=== PATIENT | male | born 1970 | race Two or more races ===

== ENCOUNTER 2024-08-02 10:00 | Outpatient (RCR) | payer MEDICAID, SELFPAY ==
--- NOTE | 2024-07-19 10:10 | PT.ODAYNRPT ---
PT Outpatient Daily Note OP Daily Note Outpatient Physical Therapy Treatment Date: 07/19/24 Visit Reasons: Left arm pain Subjective: Pt reports he can close the L hand more since sx but can't touch thumb to all fingers Objective: See F/S for therex MHP x7' L elbow Assessment: Difficulty with clothes pins due to decreased pinch industrial machinery mechanic strength. Limited flexion of first and second digits. Good improvement with elbow extension to almost full today with low load prolonged stretching. Plan: Continue per POC Length of Time (minutes) of Treatment: 30 Minutes Procedure Charges OP PT Eval Mod Complex 30 minutes: Yes
--- NOTE | 2024-07-21 12:29 | PTNOTE_ITS ---
PT Outpatient Daily Note OP Daily Note Outpatient Physical Therapy Treatment Date: 07/21/24 Visit Reasons: Left arm pain Subjective: Pt reports he can close the L hand more since sx but can't touch thumb to all fingers Objective: See F/S for therex MHP x7' L elbow Assessment: Difficulty with clothes pins due to decreased pinch fitness and wellness coordinator strength. Limited flexion of first and second digits. Good improvement with elbow extension to almost full today with low load prolonged stretching. Plan: Continue per POC Length of Time (minutes) of Treatment: 30 Minutes Procedure Charges Therapeutic Exercise 30 minutes: Yes
--- NOTE | 2024-07-26 12:29 | PTNOTE_ITS ---
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 Limited flexion of first and second digits. Plan: Continue per POC Length of Time (minutes) of Treatment: 30 Minutes Procedure Charges Therapeutic Exercise 30 minutes: Yes
--- NOTE | 2024-07-28 11:07 | PTNOTE_ITS ---
PT Outpatient Daily Note OP Daily Note Outpatient Physical Therapy Treatment Date: 07/28/24 Visit Reasons: Left arm pain Subjective: Pt reports he can close the L hand more since sx but can't touch thumb to all fingers. He wears digit hogshead liner at night but can't fully extend them on his own. Objective: See F/S for therex Assessment: Slow progress with goals due to difficulty with clothes pins due to decreased pinch superintendent police strength. Limited flexion of first and second digits. Plan: Continue per POC Length of Time (minutes) of Treatment: 30 Minutes Procedure Charges Therapeutic Exercise 30 minutes: Yes
--- NOTE | 2024-08-02 10:46 | PT.ODAYNRPT ---
PT Outpatient Daily Note OP Daily Note Outpatient Physical Therapy Treatment Date: 08/02/24 Visit Reasons: Left arm pain Subjective: Pt reports he can close the L hand more since sx but can't touch thumb to all fingers. He wears digit vending machine coin collector at night but can't fully extend them on his own. Objective: See F/S for therex Assessment: Slow progress with goals due to difficulty with clothes pins due to decreased pinch applications engineering manager strength. Limited flexion of first and second digits. Plan: Continue per POC Length of Time (minutes) of Treatment: 30 Minutes Procedure Charges Therapeutic Exercise 30 minutes: Yes
== END 2024-08-13 23:59 | disposition home or self-care (01) ==
LOC: CPTX 10:00
PROVIDERS: PCP Physician Assistant; Referring Provider Physician Assistant; Visit Provider Physician Assistant
DX: M25.522 Pain in left elbow (principal); M25.512 Pain in left shoulder; R20.0 Anesthesia of skin; M19.022 Primary osteoarthritis, left elbow; G56.22 Lesion of ulnar nerve, left upper limb; I10 Essential (primary) hypertension
CPT/HCPCS: 97110; 97162

== ENCOUNTER 2024-08-10 06:25 | Day surgery (SDC) | payer MEDICAID, SELFPAY ==
[2024-08-09 08:34] VITALS: BMI 28.4
--- NOTE | 2024-08-09 08:55 | EKG_ITS ---
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
[2024-08-09 10:24] LABS: Basophils % (Auto) 0 % (0-2.5); Eosinophils # (Auto) 0.1 Thou/mm3 (0.0-0.5); Eosinophils % (Auto) 1 % (0-10); Hematocrit 48.8 % (41.0-53.0); Hemoglobin 16.8 g/dL (13.5-16.0); Immature Granulocytes % (Auto) 0 % (0-0); Immature Granulocytes Auto 0.03 Thou/mm3 (0.00-0.00); Lymphocytes # (Auto) 3.5 Thou/mm3 (1.0-4.8); Lymphocytes % (Auto) 45 % (10-50); Mean Corpuscular HGB Conc 34.4 g/dl (31.0-37.0); Mean Corpuscular Hemoglobin 30.5 pg (25.0-35.0); Mean Corpuscular Volume 89 fL (80-100); Monocytes # (Auto) 0.4 Thou/mm3 (0.0-0.8); Monocytes % (Auto) 6 % (0-12); Neutrophils # (Auto) 3.7 Thou/mm3 (1.8-7.7); Neutrophils % (Auto) 48 % (37-80); Nucleated Red Blood Cell % 0 /100 WBC (0); Platelet Count 303 Thou/mm3 (140-440); RDW Standard Deviation 41.9 fL (35.1-43.9); Red Blood Count 5.51 Miln/mm3 (4.50-5.90); White Blood Count 7.7 Thou/mm3 (3.8-10.6)
[2024-08-09 10:33] LABS: Alanine Aminotransferase 48 U/L (10-49); Albumin, Serum 4.9 gm/dL (3.5-5.0); Albumin/Globulin Ratio 1.7 (1.2-2.2); Alkaline Phosphatase 118 U/L (46-116); Anion Gap 7 (7-16); Aspartate Amino Transferase 24 U/L (0-34); BUN/Creatinine Ratio 11 Ratio (12-20); Bilirubin,Total 0.7 mg/dL (0.3-1.2); Blood Urea Nitrogen 10 mg/dL (9-23); Calcium 9.7 mg/dL (8.3-10.6); Calcium (Corrected) 9.7 mg/dL (8.5-10.1); Carbon Dioxide 28.3 mMol/L (20.0-31.0); Chloride 102 mMol/L (98-107); Creatinine (Component) 0.9 mg/dL (0.6-1.3); Estimated Creatinine Clearance 94.3 mL/min (>60); Globulin 2.9 gm/dL (2.3-3.5); Glucose 105 mg/dL (74-106); Osmolality,Calculated 272 (275-295); Potassium 4.1 mMol/L (3.4-5.1); Sodium 137 mMol/L (136-145); Total Protein 7.8 gm/dL (5.7-8.2); eGFR > 60 See Note
[2024-08-09 10:34] LABS: Partial Thromboplastin Time 26.1 Seconds (22.0-36.0); Prothrombin Time 10.8 Seconds (9.0-12.2)
[2024-08-10] VITALS (7 sets, daily range): BP systolic 130–152; BP diastolic 77–99; PULSE 75–92; RESP 12–20; TEMP 36.6–36.8; O2SAT 96–99; BMI 28.3
--- NOTE | 2024-08-10 07:23 | CHAP ---
Prayed with patient before procedure.
--- NOTE | 2024-08-10 11:18 | SUR.PHASEI ---
1118: Pt. AAOx4, vitals stable, breathing unlabored, no complaint of pain or nausea, x4 dressing to ABD CDI, no active bleed noted, report received from Scott WEAVER and Jenifer BRISENO.
--- NOTE | 2024-08-10 11:27 | ESOP_ITS ---
Date of Procedure 08/10/24 Pre Op Diagnosis Symptomatic cholelithiasis Post Op Diagnosis Same Procedure Laparoscopic cholecystectomy Findings Patient was found to have single stone within noninflamed gallbladder but there was considerable amount of bleeding due to the gallbladder wedged into the liver Procedure Description After endotracheal anesthesia was given the patient was placed in supine position and the abdomen was prepped with chloroprep solution and draped in a sterile manner. After time out was performed I injected a few cc of of half percent Marcaine with epinephrine below the umbilicus and I made an incision for about 3 cm in length. The fascia was cleaned and Veress needle was inserted to create a pneumoperitoneum up to 15 mmHg. Then introduced a 12 mm trocar and a 10 mm camera through the fascia and I inspected the intra-abdominal organs as well as the gallbladder and the liver. Another 5 mm trocar was inserted in the epigastric region under direct vision after injecting some local anesthesia. At this time the patient was kept in reverse Trendelenburg position with the left lateral tilt. The third 5 mm trocar was inserted over the mid axillary line under direct vision and a Saurabh and Svetlana grasper was used to hold the fundus of the gallbladder. The retraction was carried out by the assistant sales director moving the fundus of the gallbladder towards the right shoulder of the patient to create enough traction. I placed a another 5 mm trocar in the midaxillary line just lateral to the rectus muscle under direct vision. I used a fenestrated grasper to retract the neck of the gallbladder laterally towards the patient's right hip. The Calot's triangle was exposed and I achieved the critical view of safety as follows: I dissected out the fatty tissue from the hepatocystic triangle and cleared this area. I also dissected inferior and posterior to the gallbladder to identify the cystic duct and the gallbladder wall. Then superiorly I dissected along the cystic plate up to lower one third third of the gallbladder to lift the gallbladder from the liver. At this time I confirmed that only 2 structures entering the gallbladder were cystic artery and the cystic duct. The common duct was not seen distally but no dissection was carried out around the duct. I did not see any need for operative cholangiogram in this patient. The cystic duct was clipped doubly and then divided and cystic artery was similarly dealt with. Then the gallbladder was removed from the liver bed using Harmonic aaron to control the small blood vessels as the dissection proceeded. Because of the location of the gallbladder deep into the liver there was a fair amount of bleeding at the liver bed which was controlled with cautery and Surgicel x 2. Then the gallbladder was from the liver bed completely and delivered through the umbilical port using an Endopouch. The liver bed was coagulated with cautery to obtain satisfactory hemostasis. The trocars were pulled out from the abdominal cavity and the fascia at the umbilical incision was closed with interrupted 0 Ethibond. Subcutaneous tissues was closed with 3-0 chromic and injected a few cc of half percent Marcaine with epinephrine and the skin was closed with interrupted 4-0 nylon stitches at all the trocar sites. Dressing was applied with 2 x 2 and Tegaderm. Patient tolerated the procedure well and returned to recovery room in stable condition. Anesthesia GETA Pathology / specimen Other (Gallbladder and the stones) IVF Infused 500 Estimated Blood Loss 100 Condition Stable Disposition PACU Surgeon Brionna Subramanian MD Surgical Staff Operation Date: 08/10/24 08:45 Case Staff CONDITIONING YARD SUPERVISOR: Scott Farah Jr, RN First Assistant: Gisel Castillo
--- NOTE | 2024-08-10 12:15 | SUR.PHASEII ---
1215: Pt. AAOx4, vitals stable, breathing unlabored, no complaint of pain or nausea, X4 dressing to ABD CDI, no active bleed noted, pt. tolerated sips of water well, pt. ambulated to wheelchair with steady gait and no assist, no complications. Gave discharge instructions to the pt. and his ride using tea bag machine tender Dominick [id number], Both verbalized understanding and had no further questions. Pt. left with all personal belongings.
== END 2024-08-10 12:15 | disposition home or self-care (01) ==
PROVIDERS: PCP Physician Assistant; Referring Provider Surgery; Visit Provider Surgery
PROC: 0FT44ZZ Resection of Gallbladder, Percutaneous Endoscopic Approach (ICD-10-PCS; CPT 47562; principal; 2024-08-10 08:45)
DX: K80.20 Calculus of gallbladder without cholecystitis without obstruction (principal); Z01.810 Encounter for preprocedural cardiovascular examination
CPT/HCPCS: 47562; 36415; 80053; 85025; 85610; 85730; 93005; A4217; A4649; J1100; J1885; J2250; J2405; J2704; J3010; J3490

== ENCOUNTER 2024-09-01 11:00 | Outpatient (RCR) | payer MEDICAID, SELFPAY ==
--- NOTE | 2024-08-23 13:10 | PT.ODAYNRPT ---
PT Outpatient Daily Note OP Daily Note Outpatient Physical Therapy Treatment Date: 08/23/24 Visit Reasons: LEFT ARM PAIN Subjective: Pt reports he can close the L hand more since sx but can't touch thumb to all fingers. He wears digit auto bumper straightener at night but can't fully extend them on his own. He is wondering how much the L hand will improve. Objective: See F/S for therex Upper limb tension test: Ulnar nerve: negative Median nerve: mild pulling of L forearm Assessment: Slow progress with goals due to difficulty with clothes pins due to decreased pinch hybrid corn breeder strength. Limited flexion of first and second digits. Plan: Continue per POC Length of Time (minutes) of Treatment: 30 Minutes Procedure Charges Therapeutic Exercise 30 minutes: Yes
--- NOTE | 2024-08-26 14:49 | PTNOTE_ITS ---
PT Outpatient Daily Note OP Daily Note Outpatient Physical Therapy Treatment Date: 08/26/24 Visit Reasons: LEFT ARM PAIN Subjective: Pt reports elbow is progressing but feels progress with spindle sander strength and function of digits is still limited. Objective: Please see flow sheet for ther ex list. Assessment: Focus on improving functional strength added pinching with putty exercise. Plan: Continue with POC. Length of Time (minutes) of Treatment: 30 Minutes Procedure Charges Therapeutic Exercise 30 minutes: Yes
--- NOTE | 2024-08-30 11:35 | PT.ODAYNRPT ---
PT Outpatient Daily Note OP Daily Note Outpatient Physical Therapy Treatment Date: 08/30/24 Visit Reasons: LEFT ARM PAIN Subjective: Pt reports poor hand control. Objective: Please see flow sheet for ther ex list. Assessment: Pt presents in clinic with poor motor control of L hand and digits. Focus on restoring hand function. Plan: Continue with POC. Length of Time (minutes) of Treatment: 30 Minutes Procedure Charges Therapeutic Exercise 30 minutes: Yes
--- NOTE | 2024-09-01 14:17 | PT.ODS1RPT ---
PT OP Progress/Discharge Note Date of Service: 09/01/24 Progress Note/DC Note Progress Note/Discharge Note: DC Note Patient Information Visit Reasons: LEFT ARM PAIN Service Continue Service or Discharge: Discharge Discharge Date: 09/01/24 Status Subjective: Pt reports he can close the L hand more since sx but can't touch thumb to all fingers. 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 He is wondering how much the L hand will improve. Objective: See F/S for therex Upper limb tension test: Ulnar nerve: negative Median nerve: mild pulling of L forearm Cristian yard switch operator strength: L: 12 lbs, R: 95 lbs L elbow AROM: Flexion: 135 deg Extension: -5 deg Assessment: Pt has attended 08/25 visits with good progress with elbow extension to -5. Pt has continued L hand yard switch operator weakness unchanged from evaluation and decreased fine motor control and digit manipulation. Pt has decreased TTP of posterior elbow from mod to min. Pt has difficulty with clothes pins due to decreased pinch yard switch operator strength. Limited flexion of first and second digits. Pt would like to seek Rx for the L shoulder. Plan: D/C with HEP Procedure Charges Therapeutic Exercise 30 minutes: Yes
== END 2024-09-13 23:59 | disposition home or self-care (01) ==
LOC: CPTX 11:00
PROVIDERS: PCP Physician Assistant; Referring Provider Physician Assistant; Visit Provider Physician Assistant
DX: M25.522 Pain in left elbow (principal); M25.512 Pain in left shoulder; R20.0 Anesthesia of skin; G56.22 Lesion of ulnar nerve, left upper limb; M19.022 Primary osteoarthritis, left elbow
CPT/HCPCS: 97110

== ENCOUNTER 2024-10-13 09:30 | Outpatient (RCR) | payer MEDICAID, SELFPAY ==
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
--- NOTE | 2024-10-13 10:06 | PT.ODAYNRPT ---
PT Outpatient Daily Note OP Daily Note Outpatient Physical Therapy Treatment Date: 10/13/24 Visit Reasons: Cervical Radicular Pain/left shoulder pain Subjective: No pain in L shoulder or neck today upon arrival Objective: See F/S for therex Assessment: Pt has moderate tissue irritability of L shoulder with therex Plan: Continue per POC Length of Time (minutes) of Treatment: 30 Minutes Procedure Charges Therapeutic Exercise 30 minutes: Yes
== END 2024-10-14 23:59 | disposition home or self-care (01) ==
LOC: CPTX 09:30
PROVIDERS: PCP Physician Assistant; Referring Provider Family Medicine Sports Medicine; Visit Provider Family Medicine Sports Medicine
DX: M54.12 Radiculopathy, cervical region (principal); M75.02 Adhesive capsulitis of left shoulder
CPT/HCPCS: 97110; 97162

== ENCOUNTER 2024-11-09 09:00 | Outpatient (RCR) | payer MEDICAID, SELFPAY ==
--- NOTE | 2024-10-18 11:11 | PT.ODAYNRPT ---
PT Outpatient Daily Note OP Daily Note Outpatient Physical Therapy Treatment Date: 10/18/24 Visit Reasons: NECK AND SHOULDER PAIN Subjective: No pain in L shoulder or neck today upon arrival Objective: See F/S for therex Assessment: Pt has moderate tissue irritability of L shoulder with therex Plan: Continue per POC Length of Time (minutes) of Treatment: 30 Minutes Procedure Charges Therapeutic Exercise 30 minutes: Yes
--- NOTE | 2024-10-25 11:18 | PT.ODAYNRPT ---
PT Outpatient Daily Note OP Daily Note Outpatient Physical Therapy Treatment Date: 10/25/24 Visit Reasons: NECK AND SHOULDER PAIN Subjective: No pain in L shoulder or neck today upon arrival Objective: See F/S for therex Assessment: Pt has moderate tissue irritability of L shoulder with therex Plan: Continue per POC Length of Time (minutes) of Treatment: 30 Minutes Procedure Charges Therapeutic Exercise 30 minutes: Yes
--- NOTE | 2024-11-02 10:31 | PT.ODAYNRPT ---
PT Outpatient Daily Note OP Daily Note Outpatient Physical Therapy Treatment Date: 11/02/24 Visit Reasons: NECK AND SHOULDER PAIN Subjective: No pain in L shoulder or neck today upon arrival Objective: See F/S for therex Assessment: Pt has moderate tissue irritability of L shoulder with reaching OH Plan: Continue per POC Length of Time (minutes) of Treatment: 30 Minutes Procedure Charges Therapeutic Exercise 30 minutes: Yes
--- NOTE | 2024-11-09 11:20 | PT.ODAYNRPT ---
PT Outpatient Daily Note OP Daily Note Outpatient Physical Therapy Treatment Date: 11/09/24 Visit Reasons: NECK AND SHOULDER PAIN Subjective: No pain in L shoulder or neck today upon arrival but the shoulder gets stiff with reaching OH Objective: See F/S for therex Assessment: Pt has min/moderate tissue irritability of L shoulder with reaching OH Plan: Continue per POC Length of Time (minutes) of Treatment: 30 Minutes Procedure Charges Therapeutic Exercise 30 minutes: Yes
== END 2024-11-11 23:59 | disposition home or self-care (01) ==
LOC: CPTX 09:00
PROVIDERS: PCP Family Medicine Sports Medicine; Referring Provider Family Medicine Sports Medicine; Visit Provider Family Medicine Sports Medicine
DX: M54.12 Radiculopathy, cervical region (principal); M75.02 Adhesive capsulitis of left shoulder
CPT/HCPCS: 97110

== ENCOUNTER 2024-11-16 12:10 | Day surgery (SDC) | payer MEDICAID, SELFPAY ==
[2024-11-15 10:36] VITALS: BMI 29.0
[2024-11-16] VITALS (9 sets, daily range): BP systolic 113–149; BP diastolic 78–100; PULSE 58–86; RESP 11–21; TEMP 36.2–36.7; O2SAT 94–97; BMI 28.0
[2024-11-16] MEDS: RINGERS LACTATED 1000 ML 1,000 ML 999 ML IV (13:50)
[2024-11-16] MEDS: MIDAZOLAM INJ 1 MG/ML VIAL 2 ML (ASD USE ONLY) 2 MG IV (13:58)
[2024-11-16] MEDS: fentaNYL CIT INJ 50 mCg/ML AMP 2ML (ASD USE ONLY) IV (14:00)
--- NOTE | 2024-11-16 14:57 | SUR.PHASEII ---
1413: Pt received for recovery. Report from Pratibha BRISENO. Pt groggy. Easily aroused with eye opening then drifts to sleep. Resp even, unlabored. VS stable. No c/o pain, discomfort. 1445: Pt more awake, alert. VS stable. Denies pain. Sitting up tolerating po fluids with no difficulty swallowing and no n/v. 1452: Pt was assisted to restroom. Ambulation steady.
--- NOTE | 2024-11-16 15:36 | SUR.PHASEII ---
1508: Pt dressed and in transport chair. Pt and stated understanding of discharge instructions via professor of art history. Pt discharged from [facility] in stable condition.
== END 2024-11-16 15:08 | disposition home or self-care (01) ==
PROVIDERS: PCP Physician Assistant; Referring Provider Surgery; Visit Provider Surgery
PROC: 0DBE8ZX Excision of Large Intestine, Via Natural or Artificial Opening Endoscopic, Diagnostic (ICD-10-PCS; CPT 45380; principal; 2024-11-16 13:45)
DX: Z12.11 Encounter for screening for malignant neoplasm of colon (principal); E78.5 Hyperlipidemia, unspecified; I10 Essential (primary) hypertension
CPT/HCPCS: 45378; A4217; J2250; J3010; J7120

== ENCOUNTER 2024-12-12 08:30 | Outpatient (RCR) | payer MEDICAID, SELFPAY ==
--- NOTE | 2024-11-15 10:37 | PT.ODAYNRPT ---
PT Outpatient Daily Note OP Daily Note Outpatient Physical Therapy Treatment Date: 11/15/24 Visit Reasons: NECK AND SHOULDER PAIN Subjective: No pain in L shoulder or neck today upon arrival but the shoulder gets stiff sometimes which limits reaching OH Objective: See F/S for therex Assessment: Pt has min tissue irritability of L shoulder with reaching OH Plan: Continue per POC Length of Time (minutes) of Treatment: 30 Minutes Procedure Charges Therapeutic Exercise 30 minutes: Yes
--- NOTE | 2024-11-22 09:24 | PT.ODAYNRPT ---
PT Outpatient Daily Note OP Daily Note Outpatient Physical Therapy Treatment Date: 11/22/24 Visit Reasons: NECK AND SHOULDER PAIN Subjective: L shoulder feels stronger since starting therapy but the shoulder gets stiff sometimes which limits reaching OH Objective: See F/S for therex Assessment: Pt has min tissue irritability of L shoulder with reaching OH with improved ROM Plan: Continue per POC Length of Time (minutes) of Treatment: 30 Minutes Procedure Charges Therapeutic Exercise 30 minutes: Yes
--- NOTE | 2024-11-30 09:51 | PT.ODAYNRPT ---
PT Outpatient Daily Note OP Daily Note Outpatient Physical Therapy Treatment Date: 11/30/24 Visit Reasons: NECK AND SHOULDER PAIN Subjective: L shoulder feels stronger since starting therapy with less pain. He has surgery scheduled for L hand on 12/22/24. Objective: See F/S for therex Assessment: Pt has min tissue irritability of L shoulder with reaching OH with improved ROM Plan: Continue per POC Length of Time (minutes) of Treatment: 30 Minutes Procedure Charges Therapeutic Exercise 30 minutes: Yes
--- NOTE | 2024-12-05 09:06 | PT.ODAYNRPT ---
PT Outpatient Daily Note OP Daily Note Outpatient Physical Therapy Treatment Date: 12/05/24 Visit Reasons: NECK AND SHOULDER PAIN Subjective: No new complaints. Objective: Please see flow sheet for ther ex list. Assessment: Pt familiar with interventions able to replicate with good technique. Plan: Continue with POc. Length of Time (minutes) of Treatment: 30 Minutes Procedure Charges Therapeutic Exercise 30 minutes: Yes
--- NOTE | 2024-12-08 10:02 | PT.ODAYNRPT ---
PT Outpatient Daily Note OP Daily Note Outpatient Physical Therapy Treatment Date: 12/08/24 Visit Reasons: NECK AND SHOULDER PAIN Subjective: L shoulder feels stronger since starting therapy with less pain. He has surgery scheduled for L hand on 12/22/24. Objective: See F/S for therex Assessment: Pt has min tissue irritability of L shoulder with reaching OH with much improved ROM to about 145 FF and abduction. Plan: Continue per POC Length of Time (minutes) of Treatment: 30 Minutes Procedure Charges Therapeutic Exercise 30 minutes: Yes
--- NOTE | 2024-12-12 09:09 | PTNOTE_ITS ---
PT OP Progress/Discharge Note Date of Service: 12/12/24 Progress Note/DC Note Progress Note/Discharge Note: DC Note Patient Information Visit Reasons: NECK AND SHOULDER PAIN Service Continue Service or Discharge: Discharge Discharge Date: 12/12/24 Status Subjective: Pt reports improved ROM with reaching and strength of L shoulder since starting therapy. Objective: L shoulder AROM: Strength: FF: 151 deg 4/5 Abd: 137 deg 4-/5 ER: 90 deg Elbow strength: flexion x5 reps with 8 lbs Assessment: Pt has attended 12/12 visits with good progress with therapy goals. He has less pain with reaching OH. Strength is about the same into abduction and ER but FF is a little better. Pt can tolerate chores x30 mins with low L shoulder pain and is independent with HEP to meet those goals. He was able to lift 8 lb dumbbell and curl with elbow x5 with hand chemical processing equipment repairer strength being limiting factor on the weight. And he lifted a box with both hands with 41 lbs in it. He can reach OH with a 2 lb DB in supine x10 without L shoulder pain Plan: D/C with HEP Procedure Charges Therapeutic Exercise 30 minutes: Yes
== END 2024-12-12 23:59 | disposition home or self-care (01) ==
LOC: CPTX 08:30
PROVIDERS: PCP Family Medicine Sports Medicine; Referring Provider Family Medicine Sports Medicine; Visit Provider Family Medicine Sports Medicine
DX: M54.12 Radiculopathy, cervical region (principal); M75.02 Adhesive capsulitis of left shoulder
CPT/HCPCS: 97110

== ENCOUNTER 2025-01-10 14:52 | Outpatient (RCR) | payer MEDICAID, SELFPAY ==
--- NOTE | 2025-01-10 15:11 | PT.OIERPT ---
PT OP Initial Eval Patient Information Outpatient Physical Therapy Treatment Date: 01/10/25 Visit Reasons: LEFT HAND SURGERY Medical Diagnosis: G54.0 R29.898 Z98.890 Treatment Dx #1: Decreased ROM L hand Treatment Dx #2: Decreased strength L hand Start of Care: 01/10/25 Date of Onset: 12/22/24 DOS Smoking Status Smoking Status: Never smoker Initial Assessment Subjective: Pt is 54 yr old syriac speaking male s/p L brachioradialis to FPL transfer, EIP oppensplasty, left index and middle finger FDP tenodesis. Pt is wearing sleeve support and is moving the digits actively and not lifting anything heavy with that hand. He will bring the splint next visit. Pt goal: to make a full fist and use the hand for work duties Objective: L wrist AROM: Flexion: 50 deg Extension: 37 deg Digit extension: PIP and DIP have flexion contractures from 30-45 deg Thumb ROM: Flexion: oppose with all digits Extension: to neutral Vocational Nursing Instructor strength: NT Fist ROM: 70% of full fist Assessment: Pt presents with decreased digit ROM and strength of L hand consistent with referring Dx. Pt requires skilled therapy and has good rehab potential to meet goals. Short Term and Usp Goals 1. Ind with HEP 2. Improved digit extension to full 3. Improved fist ROM to at least 80% 4. Pt will be able to dress, feed himself and drive using L hand Treatment Plan ? 1. Manual therapy ? 2. Therex ? 3. Modalities as indicated, moist heat, ice, estim Frequency and Duration: 2x a week for 12 weeks Certification Dates: 01/10/25 to 04/09/25 Procedure Charges OP PT Eval Mod Complex 30 minutes: Yes
== END 2025-01-11 23:59 | disposition home or self-care (01) ==
LOC: CPTX 14:52
PROVIDERS: PCP Orthopaedic Surgery Hand Surgery; Referring Provider Orthopaedic Surgery Hand Surgery; Visit Provider Orthopaedic Surgery Hand Surgery
DX: R29.898 Other symptoms and signs involving the musculoskeletal system (principal); G54.0 Brachial plexus disorders; Z98.890 Other specified postprocedural states
CPT/HCPCS: 97162

== ENCOUNTER 2025-02-08 08:30 | Outpatient (RCR) | payer MEDICAID, SELFPAY ==
--- NOTE | 2025-01-16 13:29 | PT.ODAYNRPT ---
PT Outpatient Daily Note OP Daily Note Outpatient Physical Therapy Treatment Date: 01/16/25 Visit Reasons: Left Hand surgery Subjective: Pt is using the splint at night with low pain in L hand. Objective: See F/S for therex Assessment: Pt can oppose thumb to fingers 2,3 and 4 but not the pinky. Plan: Continue per POC Length of Time (minutes) of Treatment: 30 Minutes Procedure Charges Therapeutic Exercise 30 minutes: Yes
--- NOTE | 2025-01-18 12:40 | PT.ODAYNRPT ---
PT Outpatient Daily Note OP Daily Note Outpatient Physical Therapy Treatment Date: 01/18/25 Visit Reasons: Left Hand surgery Subjective: Pt is using the splint at night with low pain in L hand. Objective: See F/S for therex Assessment: Pt can oppose thumb to fingers 2,3 and 4 but not the pinky. Plan: Continue per POC Length of Time (minutes) of Treatment: 30 Minutes Procedure Charges Therapeutic Exercise 30 minutes: Yes
--- NOTE | 2025-01-26 18:17 | PT.ODAYNRPT ---
PT Outpatient Daily Note OP Daily Note Outpatient Physical Therapy Treatment Date: 01/26/25 Visit Reasons: Left Hand surgery Subjective: Pt is using the splint at night with low pain in L hand. Objective: See F/S for therex Assessment: Pt can oppose thumb to fingers 2,3 and 4 but not the pinky. 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 Plan: Continue per POC Length of Time (minutes) of Treatment: 30 Minutes Procedure Charges Therapeutic Exercise 30 minutes: Yes
--- NOTE | 2025-01-31 09:13 | PT.ODAYNRPT ---
PT Outpatient Daily Note OP Daily Note Outpatient Physical Therapy Treatment Date: 01/31/25 Visit Reasons: Left Hand surgery Subjective: Pt reports slow progress with hand. Objective: Please see flow sheet for ther ex list. Assessment: Pt tolerated interventions well. Plan: Continue with POC. Length of Time (minutes) of Treatment: 30 Minutes Procedure Charges Therapeutic Exercise 30 minutes: Yes
--- NOTE | 2025-02-02 15:05 | PTNOTE_ITS ---
PT Outpatient Daily Note OP Daily Note Outpatient Physical Therapy Treatment Date: 02/02/25 Visit Reasons: Left Hand surgery Subjective: Pt reports hand is doing better since starting PT. Objective: Please see flow sheet for ther ex list. 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 Plan: Continue with POC. Length of Time (minutes) of Treatment: 30 Minutes Procedure Charges Therapeutic Exercise 30 minutes: Yes
--- NOTE | 2025-02-07 14:52 | PT.ODAYNRPT ---
PT Outpatient Daily Note OP Daily Note Outpatient Physical Therapy Treatment Date: 02/07/25 Visit Reasons: Left Hand surgery Subjective: Pt reports L hand is doing better, notices his gripping has improved some. Objective: Please see flow sheet for ther ex list. 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 Plan: Continue with POC. Length of Time (minutes) of Treatment: 30 Minutes Procedure Charges Therapeutic Exercise 30 minutes: Yes
--- NOTE | 2025-02-08 09:48 | PTNOTE_ITS ---
PT Outpatient Daily Note OP Daily Note Outpatient Physical Therapy Treatment Date: 02/08/25 Visit Reasons: Left Hand surgery Subjective: Pt can use the hand more since starting therapy but the digits are weak. He can touch the fingers with the thumb better since surgery. Objective: See F/S for therex Assessment: Pt can oppose thumb to fingers 2,3 and 4 but not the pinky. 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 Plan: Continue per POC Length of Time (minutes) of Treatment: 30 Minutes Procedure Charges Therapeutic Exercise 30 minutes: Yes
== END 2025-02-11 23:59 | disposition home or self-care (01) ==
LOC: CPTX 08:30
PROVIDERS: PCP Orthopaedic Surgery Hand Surgery; Referring Provider Orthopaedic Surgery Hand Surgery; Visit Provider Orthopaedic Surgery Hand Surgery
DX: R29.898 Other symptoms and signs involving the musculoskeletal system (principal); G54.0 Brachial plexus disorders; Z98.890 Other specified postprocedural states
CPT/HCPCS: 97110

== ENCOUNTER 2025-03-08 10:00 | Outpatient (RCR) | payer MEDICAID, SELFPAY ==
--- NOTE | 2025-02-14 15:37 | PT.ODAYNRPT ---
PT Outpatient Daily Note OP Daily Note Outpatient Physical Therapy Treatment Date: 02/14/25 Visit Reasons: left hand surgery Subjective: Pt mentioned he had a follow up with doctor, doctor would like for pt to work on thumb opposition and thumb flexion. Objective: Please see flow sheet for ther ex list. Assessment: Added NMES today with gripping and thumb opposition exercises. Plan: Continue with pOC. Length of Time (minutes) of Treatment: 30 Minutes Procedure Charges Therapeutic Exercise 30 minutes: Yes
--- NOTE | 2025-02-21 09:04 | PT.ODAYNRPT ---
PT Outpatient Daily Note OP Daily Note Outpatient Physical Therapy Treatment Date: 02/21/25 Visit Reasons: left hand surgery Subjective: Pt reports L hand is doing ok, slow progress. Objective: Please see flow sheet for ther ex list. Assessment: Pt performed active gripping and wrist flexion, extension with NMES. Plan: Continue with POC, assess response to treatment. Length of Time (minutes) of Treatment: 30 Minutes Procedure Charges Therapeutic Exercise 30 minutes: Yes
--- NOTE | 2025-02-23 08:43 | PT.ODAYNRPT ---
PT Outpatient Daily Note OP Daily Note Outpatient Physical Therapy Treatment Date: 02/23/25 Visit Reasons: left hand surgery Subjective: Pt reports L hand is doing ok, feels NMES machine is helping him. Objective: Please see flow sheet for ther ex list. Assessment: Pt performing gripping and wrist interventions with NMES unit to focus on muscle contraction. Plan: Continue with pOC. Length of Time (minutes) of Treatment: 30 Minutes Procedure Charges Therapeutic Exercise 30 minutes: Yes
--- NOTE | 2025-03-06 08:29 | PTNOTE_ITS ---
PT Outpatient Daily Note OP Daily Note Outpatient Physical Therapy Treatment Date: 03/06/25 Visit Reasons: left hand surgery Subjective: Pt can use the hand more since starting therapy but the digits are weak. He can touch the fingers with the thumb better since surgery. 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
--- NOTE | 2025-03-08 12:22 | PTNOTE_ITS ---
PT OP Progress/Discharge Note Date of Service: 03/08/25 Progress Note/DC Note Progress Note/Discharge Note: DC Note Patient Information Visit Reasons: left hand surgery Service Continue Service or Discharge: Discharge Discharge Date: 03/08/25 Status Subjective: Pt can use the hand more since starting therapy to eat and dress. He can touch the fingers with the thumb better since surgery. 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 He can make a full fist to meet that goal. He can dress, eat and drive using L hand to meet that goal. Pt can oppose thumb to fingers 2,3 and 4 but not the pinky but progress has plateaued with that. Plan: D/C with [facility] Procedure Charges Therapeutic Exercise 30 minutes: Yes
== END 2025-03-13 23:59 | disposition home or self-care (01) ==
LOC: CPTX 10:00
PROVIDERS: PCP Orthopaedic Surgery Hand Surgery; Referring Provider Orthopaedic Surgery Hand Surgery; Visit Provider Orthopaedic Surgery Hand Surgery
DX: R29.898 Other symptoms and signs involving the musculoskeletal system (principal); G54.0 Brachial plexus disorders; Z98.890 Other specified postprocedural states
CPT/HCPCS: 97110